=== PATIENT | female | born 1965 | race African-American/Black ===

== ENCOUNTER 2020-01-21 12:22 | Emergency (ER) | payer SELFPAY ==
[~2020-01-21] VITALS: Ht 165.1 cm; Wt 63.5 kg
--- NOTE | 2020-01-21 12:29 | ED Respiratory ---
General Chief Complaint: Respiratory Problems Stated Complaint: SOA Source: patient Exam Limitations: no limitations History of Present Illness Date Seen by Provider: Jan 21, 2020 Time Seen by Provider: 12:27 Initial Comments To ER with reports of shortness of breath worse than usual for the past 2 days, she is moved to [place] 4 days ago from [place], states that she was recently put on disability for "breathing problems" which include but are not limited to asthma, she doesn't know which other lung problems she has.. Also states that she has "a balloon in her lung" following an accident. Timing/Duration: constant Severity: moderate Associated Symptoms: cough; No fever/chills; shortness of breath Allergies and Home Medications Allergies Coded Allergies: No Known Drug Allergies (Unverified , 01/21/20) Patient Home Medication List Home Medication List Reviewed: Yes Review of Systems Review of Systems Constitutional: see HPI; No chills, No fever EENTM: see HPI Respiratory: see HPI, cough, short of breath Genitourinary: no symptoms reported Musculoskeletal: no symptoms reported Skin: no symptoms reported Psychiatric/Neurological: No Symptoms Reported Past [id number]-Rsxduo-Ovcevx Hx Patient Social History Recent Foreign Travel: No Contact w/Someone Who Travel: No Physical Exam Vital Signs - First Documented 01/21/20 12:25 Pulse 85 Resp 21 B/P (MAP) 120/68 (85) Pulse Ox 97 O2 Delivery Room Air Capillary Refill : Height: '" Weight: lbs. oz. kg; BMI Method: General Appearance: WD/WN, no apparent distress Eyes: Bilateral Eye Normal Inspection, Bilateral Eye PERRL, Bilateral Eye Abnormal EOM HEENT: PERRL/EOMI, normal ENT inspection Respiratory: normal breath sounds, no respiratory distress, no accessory muscle use Cardiovascular: regular rate, rhythm, no murmur Gastrointestinal: normal bowel sounds, non tender, soft Neurologic/Psychiatric: alert, normal mood/affect, oriented x 3 Skin: normal color, warm/dry Progress/Results/Core Measures Suspected Sepsis SIRS Temperature: Pulse: Respiratory Rate: Laboratory Tests 01/21/20 12:36: White Blood Count 6.7 Blood Pressure / Mean: Laboratory Tests 01/21/20 12:36: Creatinine 0.73, INR Comment 1.0, Platelet Count 312, Total Bilirubin 0.4 Results/Orders Lab Results Laboratory Tests Test 01/21/20 12:36 01/21/20 12:39 Range/Units White Blood Count 6.7 4.3-11.0 10^3/uL Red Blood Count 4.61 4.35-5.85 10^6/uL Hemoglobin 14.4 11.5-16.0 G/DL Hematocrit 44 35-52 % Mean Corpuscular Volume 95 80-99 FL Mean Corpuscular Hemoglobin 31 25-34 PG Mean Corpuscular Hemoglobin Concent 33 32-36 G/DL Red Cell Distribution Width 14.5 10.0-14.5 % Platelet Count 312 130-400 10^3/uL Mean Platelet Volume 9.1 7.4-10.4 FL Neutrophils (%) (Auto) 35 L 42-75 % Lymphocytes (%) (Auto) 49 H 12-44 % Monocytes (%) (Auto) 9 0-12 % Eosinophils (%) (Auto) 6 0-10 % Basophils (%) (Auto) 1 0-10 % Neutrophils # (Auto) 2.4 1.8-7.8 X 10^3 Lymphocytes # (Auto) 3.3 1.0-4.0 X 10^3 Monocytes # (Auto) 0.6 0.0-1.0 X 10^3 Eosinophils # (Auto) 0.4 H 0.0-0.3 10^3/uL Basophils # (Auto) 0.0 0.0-0.1 10^3/uL Prothrombin Time 13.5 12.2-14.7 SEC INR Comment 1.0 0.8-1.4 Activated Partial Thromboplast Time 34 24-35 SEC D-Dimer 0.44 0.00-0.49 UG/ML Sodium Level 142 135-145 MMOL/L Potassium Level 3.5 L 3.6-5.0 MMOL/L Chloride Level 109 H 98-107 MMOL/L Carbon Dioxide Level 25 21-32 MMOL/L Anion Gap 8 5-14 MMOL/L Blood Urea Nitrogen 13 7-18 MG/DL Creatinine 0.73 0.60-1.30 MG/DL Estimat Glomerular Filtration Rate > 60 BUN/Creatinine Ratio 18 Glucose Level 109 H 70-105 MG/DL Calcium Level 8.9 8.5-10.1 MG/DL Corrected Calcium 9.1 8.5-10.1 MG/DL Magnesium Level 1.9 1.6-2.4 MG/DL Total Bilirubin 0.4 0.1-1.0 MG/DL Aspartate Amino Transf (AST/SGOT) 21 5-34 U/L Alanine Aminotransferase (ALT/SGPT) 15 0-55 U/L Alkaline Phosphatase 90 40-136 U/L Myoglobin 34.2 10.0-92.0 NG/ML Troponin I < 0.028 <0.028 NG/ML B-Type Natriuretic Peptide 11.0 <100.0 PG/ML Total Protein 7.0 6.4-8.2 GM/DL Albumin 3.8 3.2-4.5 GM/DL Urine Color ANA H Urine Clarity SL CLOUDY Urine pH 5.5 5-9 Urine Specific [place] >=1.030 1.016-1.022 Urine Protein NEGATIVE NEGATIVE Urine Glucose (UA) NEGATIVE NEGATIVE Urine Ketones NEGATIVE NEGATIVE Urine Nitrite NEGATIVE NEGATIVE Urine Bilirubin NEGATIVE NEGATIVE Urine Urobilinogen 0.2 < = 1.0 MG/DL Urine Leukocyte Esterase 1+ H NEGATIVE Urine RBC (Auto) NEGATIVE NEGATIVE Urine RBC RARE /HPF Urine WBC 5-10 H /HPF Urine Squamous Epithelial Cells 25-50 H /HPF Urine Crystals NONE /LPF Urine Bacteria TRACE /HPF Urine Casts NONE /LPF Urine Mucus LARGE H /LPF Urine Trichomonas FEW H /HPF Urine Culture Indicated YES Urine Opiates Screen NEGATIVE NEGATIVE Urine Oxycodone Screen NEGATIVE NEGATIVE Urine Methadone Screen NEGATIVE NEGATIVE Urine Propoxyphene Screen NEGATIVE NEGATIVE Urine Barbiturates Screen NEGATIVE NEGATIVE Ur Tricyclic Antidepressants Screen NEGATIVE NEGATIVE Urine Phencyclidine Screen NEGATIVE NEGATIVE Urine Amphetamines Screen POSITIVE H NEGATIVE Urine Methamphetamines Screen POSITIVE H NEGATIVE Urine Benzodiazepines Screen NEGATIVE NEGATIVE Urine Cocaine Screen POSITIVE H NEGATIVE Urine Cannabinoids Screen POSITIVE H NEGATIVE My Orders Orders - MORAIMA AVELAR APRN Cbc With Automated Diff (01/21/20 12:) Magnesium (01/21/20 12:26) Chest 1 View, Ap/Pa Only (01/21/20 12:) Ekg Tracing (01/21/20:) Comprehensive Metabolic Panel (01/21/20:) Myoglobin Serum (01/21/20 12:) Protime With Inr (01/21/20 12:) Partial Thromboplastin Time (01/21/20 12:) O2 (01/21/20 12:) Monitor-Rhythm Ecg Trace Only (01/21/20 12:26) Lipid Panel (01/22/20 06:00) Ed Iv/Invasive Line Start (01/21/20 12:26) BNP (01/21/20 12:26) Troponin I (01/21/20 12:26) Ua Culture If Indicated (01/21/20 12:30) Drug Screen Stat (Urine) (01/21/20 12:30) Fibrin Degradation Products (01/21/20 12:36) Urine Culture (01/21/20 12:39) Vital Signs/I&O 01/21/20 12:25 Pulse 85 Resp 21 B/P (MAP) 120/68 (85) Pulse Ox 97 O2 Delivery Room Air Capillary Refill : Diagnostic Imaging Diagonstic Imaging: Xray Plain Films/CT/US/NM/MRI: chest Comments NAME: BENSON MARROQUIN [facility] REC#: [id number] PT STATUS: REG ER : 1965 PHYSICIAN: MORAIMA AVELAR APRN ADMIT DATE: 01/21/20/ER Draft Date of Exam:01/21/20 CHEST 1 VIEW, AP/PA ONLY INDICATION: Shortness of air. COMPARISON: None. FINDINGS: Single frontal view of the chest demonstrates normal heart size and pulmonary vascularity. The lungs are well aerated and clear. No large pleural effusion or pneumothorax is seen. The visualized osseous structures show no acute abnormalities. IMPRESSION: 1. No acute cardiopulmonary process. Dictated on workstation # [id number] Dict: 01/21/20 1319 Trans: 01/21/20 1320 [id number] Interpreted by: RACHANA COBOS MD Electronically signed by: Departure Impression Primary Impression: Shortness of breath Additional Impressions: Cocaine use Methamphetamine use Disposition: 01 HOME, SELF-CARE Condition: Stable Departure-Patient Inst. Decision time for Depature: 13:14 Referrals: JOSE KERN MD Patient Instructions: Shortness of Breath (Dyspnea), Drug Abuse Treatment Add. Discharge Instructions: 1. Return to ER for any concerns All discharge instructions reviewed with patient and/or family. Voiced understanding. MORAIMA AVELAR APRN Jan 21, 2020 12:29
[2020-01-21 12:42] LABS: BASOPHILS % (AUTO) 1 % (0-10); EOSINOPHILS # (AUTO) 0.4 10^3/uL (0.0-0.3); EOSINOPHILS % (AUTO) 6 % (0-10); HEMATOCRIT 44 % (35-52); HEMOGLOBIN 14.4 G/DL (11.5-16.0); LYMPHOCYTES # (AUTO) 3.3 X 10^3 (1.0-4.0); LYMPHOCYTES % (AUTO) 49 % (12-44); MEAN CORPUSCULAR HEMOGLOBIN 31 PG (25-34); MEAN CORPUSCULAR HGB CONC 33 G/DL (32-36); MEAN CORPUSCULAR VOLUME 95 FL (80-99); MEAN PLATELET VOLUME 9.1 FL (7.4-10.4); MONOCYTES # (AUTO) 0.6 X 10^3 (0.0-1.0); MONOCYTES % (AUTO) 9 % (0-12); NEUTROPHILS # (AUTO) 2.4 X 10^3 (1.8-7.8); NEUTROPHILS % (AUTO) 35 % (42-75); PLATELET COUNT 312 10^3/uL (130-400); RED CELL DISTRIBUTION WIDTH 14.5 % (10.0-14.5); WHITE BLOOD COUNT 6.7 10^3/uL (4.3-11.0)
[2020-01-21 12:46] LABS: BILIRUBIN,URINE NEGATIVE (NEGATIVE); CLARITY,URINE SL CLOUDY; COLOR,URINE AMBER; GLUCOSE, URINE (UA) NEGATIVE (NEGATIVE); KETONES,URINE NEGATIVE (NEGATIVE); LEUKOCYTE ESTERASE ,URINE 1+ (NEGATIVE); NITRITE,URINE NEGATIVE (NEGATIVE); PH,URINE 5.5 (5-9); PROTEIN,URINE NEGATIVE (NEGATIVE)
[2020-01-21 12:56] LABS: FIBRIN DEGRADATION PRODUCTS 0.44 UG/ML (0.00-0.49); PROTHROMBIN TIME PATIENT 13.5 SEC (12.2-14.7)
[2020-01-21 12:58] LABS: AMPHETAMINE SCREEN, URINE POSITIVE (NEGATIVE); BENZODIAZEPINES SCREEN URINE NEGATIVE (NEGATIVE); COCAINE SCREEN URINE POSITIVE (NEGATIVE)
[2020-01-21 12:59] LABS: BARBITURATE SCREEN URINE NEGATIVE (NEGATIVE); CANNABINOID SCREEN, URINE POSITIVE (NEGATIVE); METHADONE STAT NEGATIVE (NEGATIVE); METHAMPHETAMINE SCREEN URINE S POSITIVE (NEGATIVE); OPIATE SCREEN URINE NEGATIVE (NEGATIVE); OXYCODONE STAT NEGATIVE (NEGATIVE); PROPOXYPHENE STAT NEGATIVE (NEGATIVE); TRICYCLIC ANTIDEPRESSANTS SCRE NEGATIVE (NEGATIVE)
[2020-01-21 13:01] LABS: ALANINE AMINOTRANSFERASE 15 U/L (0-55); ALBUMIN 3.8 GM/DL (3.2-4.5); ALKALINE PHOSPHATASE 90 U/L (40-136); BILIRUBIN,TOTAL 0.4 MG/DL (0.1-1.0); BUN/CREATININE RATIO 18; CALCIUM 8.9 MG/DL (8.5-10.1); CARBON DIOXIDE 25 MMOL/L (21-32); CHLORIDE 109 MMOL/L (98-107); CREATININE SERUM 0.73 MG/DL (0.60-1.30); GFR ESTIMATED > 60; GLUCOSE 109 MG/DL (70-105); MAGNESIUM 1.9 MG/DL (1.6-2.4); POTASSIUM 3.5 MMOL/L (3.6-5.0); SODIUM 142 MMOL/L (135-145)
[2020-01-21 13:04] LABS: BACTERIA,URINE TRACE /HPF; RBC,URINE RARE /HPF; SQUAMOUS EPITHELIAL CELL,UR 25-50 /HPF
[2020-01-21 13:05] LABS: TRICHOMONAS,URINE FEW /HPF
--- NOTE | 2020-01-21 13:21 | Diagnostic Imaging Report ---
INDICATION: Shortness of air. COMPARISON: None. FINDINGS: Single frontal view of the chest demonstrates normal heart size and pulmonary vascularity. The lungs are well aerated and clear. No large pleural effusion or pneumothorax is seen. The visualized osseous structures show no acute abnormalities. IMPRESSION: 1. No acute cardiopulmonary process. Dictated by: Dictated on workstation # [id number]
[2020-01-21 13:35] VITALS: BP 101/85
--- OUTSIDE RECORDS SUMMARY | 2020-01-23 15:07 | XMS REPORT ---
Author Author Marzena Larry Organization [facility] Address [address] [place], [place] [id number] Care Team Providers Care Radio Operator Ground Name Role Phone Adin Larry PCP Allergies and Adverse Reactions Name Reaction Notes amoxicillin facial swelling Plan of Treatment Planned Activity Comments Planned Date Planned Time Plan/Goal CYTOPATH C/V MANUAL 12/19/2012 12:00 AM CHEST X-RAY 2VW FRONTAL&LATL 04/11/2014 12:00 AM Urine drug abuse screen with confirmation 01/12/2015 12:00 AM Medications Active Name Start Date Estimated Completion Date SIG Co mments albuterol sulfate 90 mcg/actuation inhalation HFA aerosol inhale r inhale 1 - 2 puffs by inhalation route every 6 hours as needed albuterol sulfate 2.5 mg /3 mL (0.083 %) inhalation so lution for nebulization 05/07/2013 inhale 3 milliliters (2.5 mg ) by nebulization route every 6 hours as needed Cipro 500 mg oral tablet 11/12/2015 11/19/2015 take 1 tablet (500 mg) by oral route every 12 hours for 7 days promethazine-codeine 6.25-10 mg/5 mL oral syrup 11/12/2015 take 5 milliliters by oral route every 4-6 hours as needed, not to exceed 30 mL in 24 hours Name Start Date Expiration Date SIG Comments clindamycin HCl 300 mg oral capsule 10/24/2011 10/31/2011 take 1 capsule (300 mg) by oral route 2 times per day for 7 days Zithromax Z-Shine 250 mg oral tablet 12/09/2011 12/14/2011 take 2 tablets (500 mg) by oral route once daily for 1 day then 1 tablet (250 mg) by oral route once daily for 4 days promethazine-codeine 6.25-10 mg/5 mL oral syrup 01/16/2013 01/16/2013 take 5 milliliters by oral route every 4-6 hours as needed, not to exceed 30 mL in 24 hours hydrocodone-acetaminophen 5-500 mg oral tablet 01/29/2013 TAKE 1 TABLET BY MOUTH EVERY 6 HOURS NEEDED FOR PAIN hydrocodone-acetaminophen 5-500 mg oral tablet 01/29/2013 TAKE 1 TABLET BY MOUTH EVERY 6 HOURS NEEDED FOR PAIN Cipro 500 mg oral tablet 01/30/2014 02/06/2014 take 1 tablet (500 mg) by oral route every 12 hours for 7 days promethazine-codeine 6.25-10 mg/5 mL oral syrup 06/02/2014 take 5 milliliters by oral route every 6 hours as needed, not to exceed 30 mL in 24 hours promethazine-codeine 6.25-10 mg/5 mL oral syrup 08/06/2014 take 5 milliliters by oral route every 6 hours as needed, not to exceed 30 mL in 24 hours guaifenesin 600 mg oral tablet extended release 11/21/2014 12/21/2014 take 1 tablet (600 mg) by oral route every 12 hours as needed for 30 days Keflex 500 mg oral capsule 12/18/2014 12/25/2014 take 1 capsule (500 mg) by oral route every 12 hours for 7 days azithromycin 250 mg oral tablet 04/23/2015 04/28/2015 take 2 tablets (500 mg) by oral route once daily for 1 day then 1 tablet (250 mg) by oral route once daily for 4 days prednisone 20 mg oral tablet 04/23/2015 04/29/2015 Shaq e 3 tabs x 2 days; then Take 2 tabs x 2 days; then Take 1 tab x 2 days. Xanax 0.5 mg oral tablet 07/06/2015 take 1 tablet (0.5 mg) by oral route 3 for 21 days hydrocodone-acetaminophen 10-325 mg oral tablet 07/21/2015 take 1 tablet by oral route every 6 hours as needed for pain Discontinued Name Start Date Discontinued Date SIG Comments promethazine-codeine 6.25-10 mg/5 mL oral syrup 10/24/2011 12/09/2011 take 5 milliliters by oral route every 6 hours as needed, not to exceed 30 mL in 24 hours metronidazole 500 mg oral tablet 10/31/2011 12/09/2011 take 4 tablets (2 gram) by oral route once aluminum chloride 20 % topical solution 12/12/2011 3 apply to affected area by topical route once a day (at bedtime) Lortab 5-500 mg oral tablet 07/31/2012 11/12/2012 1 tab 4-6 epifanio rs prn for pain deleted Claritin 10 mg oral tablet 08/31/2012 05/07/2013 take 1 tablet (10 mg) by oral route once daily promethazine-codeine 6.25-10 mg/5 mL oral syrup 08/31/2012 12/19/2012 take 5 milliliters by oral route every 4-6 hours as needed, not to exceed 30 mL in 24 hours Cipro 500 mg oral tablet 12/19/2012 take 1 tab. bid x 7days Zithromax Z-Shine 250 mg oral tablet 05/07/2013 07/23/2013 Take 2 tablets the first day (500 mg) followed by 1 tablet (250 mg) days 2-5. for 5 days promethazine-codeine 6.25-10 mg/5 mL oral syrup 05/07/2013 07/23/2013 take 5 milliliters by oral route every 4-6 hours as needed, not to exceed 30 mL in 24 hours hydrocodone-acetaminophen 10-325 mg oral tablet 12/19/2014 04/23/2015 take 1 tablet by oral route every 8 hours as needed for pain Didn't do drug screen Problem List Description Status Onset Asthma Active Vital Signs Date Time BP-Sys(mm[Hg] BP-Asuncion(mm[Hg]) HR(bpm) RR(rpm) Temp WT HT HC BMI BSA BMI Percentile O2 Sat(%) 11/12/2015 11:44:00 AM 100 mmHg 70 mmHg 88 bpm 18 rpm 95.4 F 127 lbs 65 in 21.13 kg/m2 1.63 m2 98 % 04/29/2015 2:14:00 PM 110 mmHg 70 mmHg 91 bpm 20 rpm 97.8 F 127 lbs 65 in 21.1337 kg/m 1.6254 m 97 % 04/23/2015 3:10:00 PM 122 mmHg 88 mmHg 78 bpm 20 rpm 97.6 F 99 % 12/18/2014 2:05:00 PM 102 mmHg 61 mmHg 82 bpm 20 rpm 97.9 F 128 lbs 06/12/2014 9:25:00 AM 102 mmHg 80 mmHg 84 bpm 20 rpm 97.1 F 125.125 lbs 65 in 20.82 kg/m2 1.61 m2 98 % 05/06/2014 3:11:00 PM 110 mmHg 70 mmHg 84 bpm 18 rpm 97.2 F 123.125 lbs 65 in 20.4889 kg/m 1.6004 m 98 % 02/25/2014 2:17:00 PM 110 mmHg 70 mmHg 85 bpm 16 rpm 96.5 F 120 lbs 97 % 01/30/2014 10:11:00 AM 100 mmHg 80 mmHg 83 bpm 18 rpm 96.6 F 65 in 97 % 11/05/2013 8:50:00 AM 124 mmHg 74 mmHg 73 bpm 20 rpm 97.5 F 122 lbs 100 % 07/23/2013 1:35:00 PM 130 mmHg 78 mmHg 78 bpm 20 rpm 98.1 F 115 lbs 65 in 19.1368 kg/m 1.5467 m 05/07/2013 3:12:00 PM 134 mmHg 68 mmHg 75 bpm 18 rpm 96.7 F 116.25 lbs 65 i n 19.34 kg/m2 1.56 m2 100 % 12/19/2012 2:00:00 PM 128 mmHg 64 mmHg 64 bpm 18 rpm 97.1 F 119.125 lbs 65 i n 19.8232 kg/m 1.5742 m 08/31/2012 8:53:00 AM 110 mmHg 78 mmHg 72 bpm 18 rpm 96.2 F 129 lbs 65 in 21.47 kg/m2 1.64 m2 07/24/2012 11:10:00 AM 126 mmHg 72 mmHg 72 bpm 18 rpm 97.5 F 65 in 12/09/2011 9:23:00 AM 126 mmHg 68 mmHg 66 bpm 18 rpm 96.6 F 124.5 lbs 65 in 20.72 kg/m2 1.61 m2 10/24/2011 1:55:00 PM 122 mmHg 70 mmHg 72 bpm 18 rpm 98.2 F 119 lbs 65 in 19.8024 kg/m 1.5734 m Social History Name Description Comments Tobacco Current every day smoker History of Procedures Date Ordered Description Order Status 10/29/2011 12:00 AM URINALYSIS AUTO W/O SCOPE Reviewed 10/24/2011 12:00 AM CYTOPATH C/V THIN LAYER Reviewed 10/24/2011 12:00 AM MAMMOGRAM SCREENING Reviewed 07/30/2012 12:00 AM X-RAY EXAM OF ANKLE Returned 12/19/2012 12:00 AM MAMMOGRAM BOTH BREASTS Returned 12/24/2012 12:00 AM MAMMOGRAM SCREENING Returned 05/07/2013 12:00 AM THER/PROPH/DIAG INJ SC/IM Reviewed 05/07/2013 12:00 AM Decadron, Per 1 Mg [facility]# [address]-45 Re viewed 05/07/2013 12:00 AM Depo-Medrol, Per 80 Mg [facility]#2629-4376-08 Reviewed 05/07/2013 12:00 AM Rocephin 1 gram [facility]#7007-2403-39 Reviewe d 05/07/2013 12:00 AM URINALYSIS NONAUTO W/O SCOPE Reviewed 07/23/2013 12:00 AM X-RAY EXAM OF HIP Reviewed 07/23/2013 12:00 AM X-RAY EXAM L-S SPINE 2/3 VWS Reviewed 06/12/2014 12:00 AM Mental Health Consult Reviewed 07/24/2014 12:00 AM COMPLETE CBC W/AUTO DIFF WBC Returned 07/24/2014 12:00 AM COMPREHEN METABOLIC PANEL Returned 07/24/2014 12:00 AM ASSAY OF NATRIURETIC PEPTIDE Returned 07/24/2014 12:00 AM CHEST X-RAY 2VW FRONTAL&LATL Returned 06/22/2015 12:00 AM DRUG SCREEN NON TLC DEVICES Returned Results Summary Data and Description Results 07/30/2014 9:24 PM WBC 8.5 RBC 4.01 HGB 13.50 g /dLHCT 39.30 %MCV 98.0 fLMCH 33.70 pgMCHC 34.40 g/dLRDW CV 13.50 %MPV 9.10 fLPLT 254 %NEUT 34.80 %%LYMP 48.70 %%MONO 6.80 %%EOS 8.90 %%BASO 0.80 %#NEUT 2.95 #LYMP 4.14 #MONO 0.58 #EOS 0.76 #BASO 0.07 GLUCOSE 60.0 mg/dLSODIUM 137.0 mmol/LPOTASSIUM 3.90 mmol/LCHLORIDE 104.0 mmol/LCO2 26.0 mmol/LBUN 16.0 mg/dLCREATININE 0.80 mg/dLSGOT/AST 17.0 IU/LSGPT/ALT 11.0 IU/LALK PHOS 72.0 IU/LTOTAL PROTEIN 7.60 g/dLALBUMIN 3.90 g/dLTOTAL BILI 0.40 mg/dLCALCIUM 8.90 mg/dLeGFR 60 BNP <10 PG/ML 06/22/2015 1:18 PM Cannabinoids (THC) NON-NEGAT LEEROY Phencyclidine (PCP) NEGATIVE Cocaine NON-NEGATIVE Methamphetamine NEGATIVE Opiates NON-NEGATIVE Amphetamine NEGATIVE Benzodiazepines NEGATIVE Methadone NEGATIVE Barbiturates NEGATIVE Oxycodone NEGATIVE Propoxyphene (PPX) NEGATIVE History Of Immunizations Not available. History of Past Illness Name Date of Onset Comments Asthma Routine gynecological examination Oct 24 2011 1:57PM Screening Examination for Breast Cancer Oct 24 2011 1:57PM Bronchitis, Acute Oct 24 2011 1:57PM Upper Respiratory Infections Dec 09 2011 9:25AM Fracture Of Medial Malleolus, Hairline Fracture Jul 24 2012 11:11AM Cough Jul 24 2012 11:11AM Fracture Of Medial Malleolus, Hairline Fracture Jul 30 2012 11:55AM General Medical Exam, Adult Aug 31 2012 8:56AM Seasonal Allergies Aug 31 2012 8:56AM Routine gynecological examination Dec 19 2012 2:01PM Fibrocystic Changes Of The Breast Dec 19 2012 2:01PM Screening Mammogram Dec 24 2012 1:46PM Pneumonia May 07 2013 3:14PM Upper Respiratory Infections May 07 2013 3:14PM Dysuria May 07 2013 3:14PM Pain in joint; Right Hip Jul 23 2013 1:37PM Low Back Pain Jul 23 2013 1:37PM Pain in joint; Right Hip Nov 05 2013 9:28AM Low Back Pain Nov 05 2013 9:28AM Hip pain Jan 30 2014 10:13AM Dental caries Jan 30 2014 10:13AM Cough Feb 25 2014 2:19PM Dental caries Feb 25 2014 2:19PM Cough Apr 11 2014 8:06AM Depression May 06 2014 3:14PM Chronic hip pain May 06 2014 3:14PM Cough May 06 2014 3:14PM Hip pain Jun 12 2014 9:29AM Grief reaction Jun 12 2014 9:29AM Chronic cough Jul 24 2014 3:32PM URI (upper respiratory infection) Dec 18 2014 2:19PM Dental caries Dec 18 2014 2:19PM 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 Jan 12 2015 3:03P M Sinusitis Apr 23 2015 3:11PM Chronic hip pain, right Apr 29 2015 2:15PM Chronic use of opiate for therapeutic purpose Jun 22 2015 10 :11AM Acute maxillary sinusitis, recurrence not specified Nov 12 11:46AM Payers Insurance Name Company Name Plan Name Plan Number Policy Number Matt cy Group Number Start Date [place] [facility] [place] [facility] Marybeth oscar Bernal [id number] Friday, 2014 [facility] [id number] Friday, August 31, 2012 [employer] [id number] N/A [facility] [id number] May [employer] Financial Assistance [employer]ial Marybeth 50 Percent Wednesday, November 13, 2013 [facility] [place] [facility] ONLY [facility] [id number] N/A History of Encounters Visit Date Visit Type Provider 11/12/2015 Office visit Adin Larry APR N 04/29/2015 Office visit Adin Larry APR N 04/23/2015 Office visit Adin Larry APR N 12/18/2014 Office visit Adin Larry APR N 06/12/2014 Office visit Adin Larry APR N 05/06/2014 Office visit Adin Larry APR N 02/25/2014 Office visit Adin Larry APR N 01/30/2014 Office visit Adin Larry APR N 11/05/2013 Office visit Adin Larry APR N 07/23/2013 Office visit Franklin Fernández DO 05/07/2013 Office visit Joselin Dobbs ART SALES CONSULTANT 12/19/2012 Office visit Joselin Dobbs ART SALES CONSULTANT 08/31/2012 Office visit Joselin Dobbs ART SALES CONSULTANT 07/24/2012 Office visit Joselin Dobbs ART SALES CONSULTANT 12/09/2011 Office visit Joselin Dobbs ART SALES CONSULTANT 10/24/2011 Office visit Franklin Fernández DO
--- OUTSIDE RECORDS SUMMARY | 2020-01-23 15:07 | XMS REPORT ---
Author Author [facility] Organization [facility] Address [address] [place], [place] [id number] Care Team Providers Care Pl Sql Developer Name Role Phone PCP Unavailable Allergies and Adverse Reactions Name Reaction Notes amoxicillin facial swelling Plan of Treatment Planned Activity Comments Planned Date Planned Time Plan/Goal CYTOPATH C/V MANUAL 12/19/2012 12:00 AM CHEST X-RAY 2VW FRONTAL&LATL 04/11/2014 12:00 AM Urine drug abuse screen with confirmation 01/12/2015 12:00 AM Medications Active Name Start Date Estimated Completion Date SIG Co mments albuterol sulfate Inhalation HFA Aerosol Inhaler 90 mcg/actuatio n inhale 1 - 2 puffs by inhalation route every 6 hours as needed albuterol sulfate Inhalation Solution for Nebulization 2.5 mg /3 mL (0.083 %) 05/07/2013 inhale 3 milliliters (2.5 mg ) by nebulization route every 6 hours as needed prednisone oral tablet 20 mg 04/23/2015 04/29/2015 Shaq e 3 tabs x 2 days; then Take 2 tabs x 2 days; then Take 1 tab x 2 days. Xanax oral tablet 0.5 mg 04/27/2015 take 1 tablet (0.5 mg) by oral route 3 for 21 days hydrocodone-acetaminophen oral tablet 10-325 mg 04/29/2015 take 1 tablet by oral route every 6 hours as needed for pain Name Start Date Expiration Date SIG Comments clindamycin HCl Oral Capsule 300 mg 10/24/2011 10/31/2011 take 1 capsule (300 mg) by oral route 2 times per day for 7 days Zithromax Z-Shine Oral Tablet 250 mg 12/09/2011 12/14/2011 take 2 tablets (500 mg) by oral route once daily for 1 day then 1 tablet (250 mg) by oral route once daily for 4 days promethazine-codeine Oral Syrup 6.25-10 mg/5 mL 01/16/2013 01/16/2013 take 5 milliliters by oral route every 4-6 hours as needed, not to exceed 30 mL in 24 hours hydrocodone-acetaminophen Oral tablet 5-500 mg 01/29/2013 TAKE 1 TABLET BY MOUTH EVERY 6 HOURS NEEDED FOR PAIN hydrocodone-acetaminophen Oral tablet 5-500 mg 01/29/2013 TAKE 1 TABLET BY MOUTH EVERY 6 HOURS NEEDED FOR PAIN Cipro oral tablet 500 mg 01/30/2014 02/06/2014 take 1 tablet (500 mg) by oral route every 12 hours for 7 days promethazine-codeine oral syrup 6.25-10 mg/5 mL 06/02/2014 take 5 milliliters by oral route every 6 hours as needed, not to exceed 30 mL in 24 hours promethazine-codeine oral syrup 6.25-10 mg/5 mL 08/06/2014 take 5 milliliters by oral route every 6 hours as needed, not to exceed 30 mL in 24 hours guaifenesin oral tablet extended release 600 mg 11/21/2014 12/21/2014 take 1 tablet (600 mg) by oral route every 12 hours as needed for 30 days Keflex oral capsule 500 mg 12/18/2014 12/25/2014 take 1 capsule (500 mg) by oral route every 12 hours for 7 days azithromycin oral tablet 250 mg 04/23/2015 04/28/2015 take 2 tablets (500 mg) by oral route once daily for 1 day then 1 tablet (250 mg) by oral route once daily for 4 days Discontinued Name Start Date Discontinued Date SIG Comments promethazine-codeine Oral Syrup 6.25-10 mg/5 mL 10/24/2011 12/09/2011 take 5 milliliters by oral route every 6 hours as needed, not to exceed 30 mL in 24 hours metronidazole Oral Tablet 500 mg 10/31/2011 12/09/2011 take 4 tablets (2 gram) by oral route once aluminum chloride Topical Solution 20 % 12/12/2011 3 apply to affected area by topical route once a day (at bedtime) Lortab Oral tablet 5-500 mg 07/31/2012 11/12/2012 1 tab 4-6 epifanio rs prn for pain deleted Claritin Oral tablet 10 mg 08/31/2012 05/07/2013 take 1 tablet (10 mg) by oral route once daily promethazine-codeine Oral Syrup 6.25-10 mg/5 mL 08/31/2012 12/19/2012 take 5 milliliters by oral route every 4-6 hours as needed, not to exceed 30 mL in 24 hours Cipro Oral tablet 500 mg 12/19/2012 take 1 tab. bid x 7days Zithromax Z-Shine Oral Tab 250 MG 05/07/2013 07/23/2013 Take 2 tablets the first day (500 mg) followed by 1 tablet (250 mg) days 2-5. for 5 days promethazine-codeine Oral Syrup 6.25-10 mg/5 mL 05/07/2013 07/23/2013 take 5 milliliters by oral route every 4-6 hours as needed, not to exceed 30 mL in 24 hours hydrocodone-acetaminophen oral tablet 10-325 mg 12/19/2014 04/23/2015 take 1 tablet by oral route every 8 hours as needed for pain Didn't do drug screen Problem List Description Status Onset Asthma Active Vital Signs Date Time BP-Sys(mm[Hg] BP-Asuncion(mm[Hg]) HR(bpm) RR(rpm) Temp WT HT HC BMI BSA BMI Percentile O2 Sat(%) 04/29/2015 2:14:00 PM 110 mmHg 70 mmHg 91 bpm 20 rpm 97.8 F 127 lbs 65 in 21.13 kg/m2 1.63 m2 97 % 04/23/2015 3:10:00 PM 122 mmHg [...] THER/PROPH/DIAG INJ SC/IM Reviewed 05/07/2013 12:00 AM URINALYSIS NONAUTO W/O SCOPE Reviewed 07/23/2013 12:00 AM X-RAY EXAM OF HIP Reviewed 07/23/2013 12:00 AM X-RAY EXAM L-S SPINE 2/3 VWS Reviewed 07/24/2014 12:00 AM COMPLETE CBC W/AUTO DIFF WBC Returned 07/24/2014 12:00 AM COMPREHEN METABOLIC PANEL Returned 07/24/2014 12:00 AM ASSAY OF NATRIURETIC PEPTIDE Returned 07/24/2014 12:00 AM CHEST X-RAY 2VW FRONTAL&LATL Returned Results Summary Data and Description Results [...] mg/dLCALCIUM 8.90 mg/dLeGFR 60 BNP <10 PG/ML History Of Immunizations Not available. History of [...] 2:19PM Dental caries Dec 18 2014 2:19PM snf current use of opiate analgesic Jan 12 2015 3:03P M Sinusitis Apr 23 2015 3:11PM Chronic hip pain, right Apr 29 2015 2:15PM Payers Insurance Name Company Name Plan Name Plan Number Policy Number Matt cy Group Number Start Date [facility] [id number] [place] [facility] Financial Assistance [facility] Fin ancial Marybeth 50 Percent Wednesday, November 13, 2013 Free Clinic - [place] [facility] ONLY Free Clinic [id number] N/A [place] [facility] Marybeth oscar Galaviz [id number] Friday, February 14, 2014 [facility] Occupational Medicine [id number] Friday, August 31, 2012 [employer] [id number] N/A History of Encounters Visit Date Visit Type Provider 04/29/2015 Office visit Adin Larry APR N [...] Fernández DO 05/07/2013 Office visit Joselin Dobbs COPER HAND 12/19/2012 Office visit Joselin Dobbs COPER HAND 08/31/2012 Office visit Joselin Dobbs COPER HAND 07/24/2012 Office visit Joselin Dobbs COPER HAND 12/09/2011 Office visit Joselin Dobbs APRN 10/24/2011 Office visit Franklin Fernández DO
--- OUTSIDE RECORDS SUMMARY | 2020-01-23 15:07 | XMS REPORT ---
Author Author Marzena Larry Organization [facility] Address [address] [place] [phone] Care Team Providers Care Learning Facilitator Name Role Phone Adin Larry PCP Allergies and Adverse Reactions Name Reaction Notes amoxicillin facial swelling Plan of Treatment Planned Activity Comments Planned Date Planned Time Plan/Goal Pap smear 03/23/2018 12:00 AM Chlamydia 03/23/2018 12:00 AM Gonorrhea 03/23/2018 12:00 AM Medications Active Name Start Date Estimated Completion Date SIG Co mments albuterol sulfate 90 mcg/actuation inhalation HFA aerosol inhale r inhale 1 - 2 puffs by inhalation route every 6 hours as needed albuterol sulfate 2.5 mg /3 mL (0.083 %) inhalation so lution for nebulization 05/07/2013 inhale 3 milliliters (2.5 mg ) by nebulization route every 6 hours as needed Flagyl 500 mg oral tablet 03/23/2018 03/30/2018 take 1 tablet (500 mg) by oral route every 12 hours for 7 days Name Start Date Expiration Date SIG Comments [...] every 6 hours as needed for pain promethazine-codeine 6.25-10 mg/5 mL oral syrup 11/12/2015 take 5 milliliters by oral route every 4-6 hours as needed, not to exceed 30 mL in 24 hours Tessalon Perles 100 mg oral capsule 01/18/2018 take 1 capsule (100 mg) by oral route 3 times per day as needed for cough Cipro 500 mg oral tablet 01/18/2018 take 1 tablet (500 mg) by oral route every 12 hours for 7 days Discontinued Name Start Date Discontinued Date [...] HC BMI BSA BMI Percentile O2 Sat(%) 03/20/2018 3:01:00 PM 120 mmHg 70 mmHg 82 bpm 18 rpm 98.1 F 137 lbs 65 in 22.7978 kg/m 1.6882 m 99 % 01/18/2018 1:24:00 PM 128 mmHg 78 mmHg 86 bpm 18 rpm 98.5 F 138.5 lbs 65 in 23.05 kg/m2 1.70 m2 98 % 11/12/2015 11:44:00 AM 100 mmHg 70 mmHg 88 bpm 18 rpm 95.4 F 127 lbs 65 in 21.1337 kg/m 1.6254 m 98 % 04/29/2015 2:14:00 PM 110 mmHg [...] rpm 97.1 F 125.125 lbs 65 in 20.8217 kg/m 1.6133 m 98 % 05/06/2014 3:11:00 PM 110 mmHg 70 mmHg 84 bpm 18 rpm 97.2 F 123.125 lbs 65 in 20.49 kg/m2 1.60 m2 98 % 02/25/2014 2:17:00 PM 110 mmHg [...] rpm 96.6 F 124.5 lbs 65 in 20.7177 kg/m 1.6093 m 10/24/2011 1:55:00 PM 122 mmHg 70 mmHg 72 bpm 18 rpm 98.2 F 119 lbs 65 in 19.80 kg/m2 1.57 m2 Social History Name Description Comments Tobacco Current every day smoker History of Procedures Date Ordered Description Order Status 10/29/2011 12:00 AM URINALYSIS AUTO W/O SCOPE Reviewed 10/24/2011 12:00 AM CYTOPATH C/V THIN LAYER Reviewed 10/24/2011 12:00 AM MAMMOGRAM SCREENING Reviewed 07/30/2012 12:00 AM X-RAY EXAM OF ANKLE Reviewed 12/19/2012 12:00 AM CYTOPATH C/V MANUAL Reviewed 12/19/2012 12:00 AM MAMMOGRAM BOTH BREASTS Reviewed 12/24/2012 12:00 AM MAMMOGRAM SCREENING Reviewed 03/23/2018 12:00 AM SPECIMEN HANDLING OFFICE-LAB Reviewed 03/23/2018 12:00 AM Pap Specimen Handling - Medicare Reviewe d 05/07/2013 12:00 AM THER/PROPH/DIAG INJ SC/IM Reviewed 05/07/2013 12:00 AM Decadron, Per 1 Mg [facility]# [address]-23 Re viewed 05/07/2013 12:00 AM Depo-Medrol, Per 80 Mg [facility]#8187-6871-88 Reviewed 05/07/2013 12:00 AM Rocephin 1 gram [facility]#[id number] Reviewe d 05/07/2013 12:00 AM URINALYSIS NONAUTO W/O SCOPE Reviewed 07/23/2013 12:00 AM X-RAY EXAM OF HIP Reviewed 07/23/2013 12:00 AM X-RAY EXAM L-S SPINE 2/3 VWS Reviewed 07/23/2013 12:00 AM Orthopedic Consult - Dr Aragon Reviewed 06/12/2014 12:00 AM Mental Health Consult Reviewed 07/24/2014 12:00 AM COMPLETE CBC W/AUTO DIFF WBC Reviewed 07/24/2014 12:00 AM COMPREHEN METABOLIC PANEL Reviewed 07/24/2014 12:00 AM ASSAY OF NATRIURETIC PEPTIDE Reviewed 07/24/2014 12:00 AM CHEST X-RAY 2VW FRONTAL&LATL Reviewed 12/18/2014 12:00 AM Dental Consult Reviewed 06/22/2015 12:00 AM DRUG SCREEN NON TLC DEVICES Reviewed Results Summary Date and Description Results 07/30/2014 9:24 PM WBC 8.5 RBC 4.01 HGB 13.50 g /dLHCT 39.30 %MCV 98.0 fLMCH 33.70 pgMCHC 34.40 g/dLRDW SD 49 RDW CV 13.50 %MPV 9.10 fLPLT 254 NRBC# 0.00 NRBC% 0.0 %NEUT 34.80 %%LYMP 48.70 %%MONO 6.80 %%EOS 8.90 %%BASO 0.80 %#NEUT 2.95 #LYMP 4.14 #MONO 0.58 #EOS 0.76 #BASO 0.07 MANUAL DIFF NOT IND GLUCOSE 60.0 mg/dLSODIUM 137.0 mmol/LPOTASSIUM 3.90 mmol/LCHLORIDE 104.0 mmol/LCO2 26.0 mmol/LBUN 16.0 mg/dLCREATININE 0.80 mg/dLSGOT/AST 17.0 IU/LSGPT/ALT 11.0 IU/LALK PHOS 72.0 IU/LTOTAL PROTEIN 7.60 g/dLALBUMIN 3.90 g/dLTOTAL BILI 0.40 mg/dLCALCIUM 8.90 mg/dLAGE 48 GFR NonAA 77 GFR AA 93 eGFR 60 eGFR AA* 60 BNP <10 PG/ML 06/22/2015 1:18 PM Cannabinoids (THC) NON-NEGAT LEEROY Phencyclidine (PCP) NEGATIVE Cocaine NON-NEGATIVE Methamphetamine NEGATIVE Opiates NON-NEGATIVE Amphetamine NEGATIVE Benzodiazepines NEGATIVE Tricyclic Antidepres NEGATIVE Methadone NEGATIVE Barbiturates NEGATIVE Oxycodone NEGATIVE [...] 2:19PM Dental caries Dec 18 2014 2:19PM correction current use of opiate analgesic Jan 12 2015 3:03P M Sinusitis Apr 23 2015 3:11PM Chronic hip pain, right Apr 29 2015 2:15PM Chronic use of opiate for therapeutic purpose Jun 22 2015 10 :11AM Acute maxillary sinusitis, recurrence not specified Nov 12 2 015 11:46AM Upper respiratory tract infection, unspecified type Jan 18 2 018 1:26PM Routine gynecological examination Mar 20 2018 3:02PM Payers Insurance Name Company Name Plan Name Plan Number Policy Number Matt cy Group Number Start Date [employer] [id number] N/A [place] Medical Assistance Program [facility] Marybeth radha [id number] Friday, 2014 [facility] Med Occupational Medicine [id number] Friday, August 31, 2012 [employer] [id number] N/A [facility] [id number] [facility] Financial Assistance [facility] Hao rosaial Marybeth 50 Percent Wednesday, November 13, 2013 [facility] [place] [facility] [id number] N/A History of Encounters Visit Date Visit Type Provider 03/20/2018 Office visit Adin Larry APR N 01/18/2018 Office visit Adin Larry APR N 05/24/2016 [facility] Jean Heaton MD 11/12/2015 Office visit Adin Mccormickran APR N 04/29/2015 Office visit Adin Mccormickran APR N 04/23/2015 Office visit Adin Mccormickran APR N 12/18/2014 Office visit Adin Mccormickran APR N 06/12/2014 Office visit Adin Mccormickran APR N 05/06/2014 Office visit Adin Mccormickran APR N 02/25/2014 Office visit Adin Mccormickran APR N 01/30/2014 Office visit Adin Larry APR N 11/05/2013 Office visit Adin Larry APR N 07/23/2013 Office visit Franklin Fernández DO 05/07/2013 Office visit Joselin Dobbs CHILD CARE SITTER 12/19/2012 Office visit Joselin Dobbs CHILD CARE SITTER 08/31/2012 Office visit Joselin Dobbs CHILD CARE SITTER 07/24/2012 Office visit Joselin Dobbs CHILD CARE SITTER 12/09/2011 Office visit Joselin Dobbs CHILD CARE SITTER 10/24/2011 Office visit Franklin Fernández DO
--- OUTSIDE RECORDS SUMMARY | 2020-01-23 15:07 | XMS REPORT ---
Author Author Marzena Larry Organization [facility] Address [address] [place], [place] [id number] Care Team Providers Care Utility Systems Repairer Operator Name Role Phone Adin Larry PCP Adin Larry PreferredProvider Allergies and Adverse Reactions Name Reaction Notes amoxicillin facial swelling Plan of Treatment Not available. Medications Active Name Start Date Estimated Completion Date SIG Co mments albuterol sulfate 90 mcg/actuation inhalation HFA aerosol inhale r inhale 1 - 2 puffs by inhalation route every 6 hours as needed albuterol sulfate 2.5 mg /3 mL (0.083 %) Inhalation So lution for Nebulization 06/07/2018 inhale 3 milliliters (2.5 mg ) by nebulization route every 6 hours as needed Name Start Date Expiration Date SIG Comments [...] route every 12 hours for 7 days Flagyl 500 mg oral tablet 03/23/2018 03/30/2018 take 1 tablet (500 mg) by oral route every 12 hours for 7 days promethazine 25 mg oral tablet 10/23/2018 t [place] 1 tablet (25 mg) by oral route every 6 hours as needed clindamycin HCl 300 mg oral capsule 01/18/2019 01/25/2019 take 1 capsule (300 mg) by oral route 2 times per day for 7 days Discontinued Name Start Date [...] HC BMI BSA BMI Percentile O2 Sat(%) 01/18/2019 9:29:00 AM 140 mmHg 80 mmHg 94 bpm 16 rpm 97.9 F 147 lbs 65 in 24.4618 kg/m 1.7487 m 98 % 03/20/2018 3:01:00 PM 120 mmHg 70 mmHg 82 bpm 18 rpm 98.1 F 137 lbs 65 in 22.80 kg/m2 1.69 m2 99 % 01/18/2018 1:24:00 PM 128 mmHg 78 mmHg 86 bpm 18 rpm 98.5 F 138.5 lbs 65 in 23.0474 kg/m 1.6974 m 98 % 11/12/2015 11:44:00 AM 100 mmHg [...] F 119 lbs 65 in 19.8024 kg/m 1.57 m2 Social History Name Description Comments [...] Pap Specimen Handling - Medicare Reviewe d 03/23/2018 12:00 AM CYTOPATH C/V THIN LAYER Reviewed 03/23/2018 12:00 AM CHLAMYDIA CULTURE Reviewed 03/23/2018 12:00 AM N.GONORRHOEAE DNA AMP PROB Reviewed 05/07/2013 12:00 AM THER/PROPH/DIAG INJ SC/IM Reviewed 05/07/2013 12:00 AM Decadron, Per 1 Mg [facility]# [id number] Re viewed 05/07/2013 12:00 AM Depo-Medrol, Per 80 Mg [facility]#8644-4689-60 Reviewed 05/07/2013 12:00 AM Rocephin 1 gram [facility]#1482-9025-34 Reviewe d 05/07/2013 12:00 AM URINALYSIS NONAUTO [...] 2:19PM Dental caries Dec 18 2014 2:19PM 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 Jan 12 2015 3:03P M Sinusitis Apr 23 2015 3:11PM Chronic hip pain, right Apr 29 2015 2:15PM Chronic use of opiate for therapeutic purpose Jun 22 2015 10 :11AM Acute maxillary sinusitis, recurrence not specified Nov 12 11:46AM Upper respiratory tract infection, unspecified type Jan 18 2 018 1:26PM Routine gynecological examination Mar 20 2018 3:02PM Acute bronchitis, unspecified organism Jan 18 2019 9:31AM Payers Insurance Name Company Name Plan Name Plan Number Policy Number Matt cy Group Number Start Date [id number] N/ A [facility] Assistance [facility] Marybeth Bernal [id number] Friday, 2014 [facility] Occupational Medicine [id number] Friday, August 31, 2012 [employer] [id number] N/A [facility] [id number] May [facility] Financial Assistance [place] [employer] Fin ancial Marybeth 50 Percent Wednesday, November 13, 2013 [place] - [place] [facility] ONLY Free Clinic [id number] N/A [employer] [id number] N/A History of Encounters Visit Date Visit Type Provider 01/18/2019 Office visit Adin Larry APR N 03/20/2018 Office visit Adin Larry APR N 01/18/2018 Office visit Adin Larry APR N 05/24/2016 [facility] Jean Heaton MD 11/12/2015 Office visit Adin Larry APR N [...] Fernández DO 05/07/2013 Office visit Joselin Dobbs CATEGORY MANAGER 12/19/2012 Office visit Joselin Dobbs CATEGORY MANAGER 08/31/2012 Office visit Joselin Dobbs CATEGORY MANAGER 07/24/2012 Office visit Joselin Dobbs CATEGORY MANAGER 12/09/2011 Office visit Joselin Dobbs CATEGORY MANAGER 10/24/2011 Office visit Franklin Fernández DO
--- OUTSIDE RECORDS SUMMARY | 2020-01-23 15:08 | XMS REPORT ---
Author Author Marzena Larry [facility] Address [address] [place] [id number] Care Team Providers Care Clinical Services Consultant Name Role Phone Adin Larry PCP Allergies [...] nebulization route every 6 hours as needed promethazine-codeine 6.25-10 mg/5 mL oral syrup 11/12/2015 [...] HC BMI BSA BMI Percentile O2 Sat(%) 01/18/2018 1:24:00 PM 128 mmHg 78 mmHg [...] rpm 98.1 F 115 lbs 65 in 19.14 kg/m2 1.55 m2 05/07/2013 3:12:00 PM 134 mmHg 68 mmHg 75 bpm 18 rpm 96.7 F 116.25 lbs 65 i n 19.3448 kg/m 1.5551 m 100 % 12/19/2012 2:00:00 PM 128 mmHg 64 mmHg 64 bpm 18 rpm 97.1 F 119.125 lbs 65 i n 19.82 kg/m2 1.57 m2 08/31/2012 8:53:00 AM 110 mmHg 78 mmHg 72 bpm 18 rpm 96.2 F 129 lbs 65 in 21.4665 kg/m 1.6381 m 07/24/2012 11:10:00 AM 126 mmHg 72 mmHg [...] Reviewed 12/24/2012 12:00 AM MAMMOGRAM SCREENING Reviewed 05/07/2013 12:00 AM THER/PROPH/DIAG INJ SC/IM Reviewed 05/07/2013 12:00 AM Decadron, Per 1 Mg [facility]# [address]-19 Re viewed 05/07/2013 12:00 AM Depo-Medrol, Per 80 Mg [facility]#2023-1945-87 Reviewed 05/07/2013 12:00 AM Rocephin 1 gram [facility]#[id number] Reviewe d 05/07/2013 12:00 AM URINALYSIS NONAUTO [...] 2:19PM Dental caries Dec 18 2014 2:19PM retirement current use of opiate analgesic Jan 12 2015 3:03P M Sinusitis Apr 23 2015 3:11PM Chronic hip pain, right Apr 29 2015 2:15PM Chronic use of opiate for therapeutic purpose Jun 22 2015 10 :11AM Acute maxillary sinusitis, recurrence not specified Nov 12 11:46AM Upper respiratory tract infection, unspecified type Jan 18 1:26PM Payers Insurance Name Company Name Plan Name Plan Number Policy Number Amtt cy Group Number Start Date [place] [facility] Marybeth oscar Pro [id number] Friday, 2014 [facility] Med Occupational Medicine [id number] Friday, August 31, 2012 [employer] [id number] N/A [facility] [id number] May [facility] Financial Assistance [facility] Fin ancial Marybeth 50 Percent Wednesday, November 13, 2013 [facility] [place] [facility] [id number] N/A History of Encounters Visit Date Visit Type Provider 01/18/2018 Office visit Adin Larry APR N 05/24/2016 [facility] Jean Heaton MD 11/12/2015 Office visit [...] Fernández DO 05/07/2013 Office visit Joselin Dobbs BABBITT SPINNER 12/19/2012 Office visit Joselin Dobbs BABBITT SPINNER 08/31/2012 Office visit Joselin Dobbs BABBITT SPINNER 07/24/2012 Office visit Joselin Dobbs BABBITT SPINNER 12/09/2011 Office visit Joselin Dobbs APRN 10/24/2011 Office visit Franklin Fernández DO
== END 2020-01-21 13:35 | disposition home or self-care (01) ==
LOC: ER 12:24
DX: R06.02 Shortness of breath (principal); F14.90 Cocaine use, unspecified, uncomplicated; F15.90 Other stimulant use, unspecified, uncomplicated
CPT/HCPCS: 36415; 71045; 80053; 80306; 81000; 83735; 83874; 83880; 84484; 85025; 85379; 85610; 85730; 87088; 93005; 93041

== ENCOUNTER 2021-06-26 17:26 | Inpatient (IN) | payer MEDICARE ==
[~2021-06-26] VITALS: Ht 165 cm; Wt 50.0 kg
--- NOTE | 2021-06-26 17:55 | ED Abdominal Pain ---
General Chief Complaint: Abdominal/GI Problems Stated Complaint: ABD PAIN Nursing Triage Note: PT ARRIVES TO ER WITH C/O ABD PAIN FOR THE LAST THREE DAYS. PT STATES PAIN IS 10/10 Source of Information: Patient Exam Limitations: No Limitations History of Present Illness Date Seen by Provider: Jun 26, 2021 Time Seen by Provider: 17:53 Initial Comments To ER by private vehicle from home with a 3-day history of upper midline abdominal pain. She rates this a 10 out of 10 waxes and wanes in intensity. She cannot identify any modifying factors. She does have nausea without vomiting. No diarrhea no urinary symptoms. She does smoke cigarettes and use methamphetamine. Timing/Duration: 2-3 Days Severity/Quality: Severe Location: Epigastric Radiation: No Radiation Activities at Onset: None Allergies and Home Medications Allergies Coded Allergies: No Known Drug Allergies (Unverified , 01/21/20) Patient Home Medication List Home Medication List Reviewed: Yes Review of Systems Review of Systems Constitutional: see HPI EENTM: No Symptoms Reported Respiratory: No Symptoms Reported Cardiovascular: No Symptoms Reported Gastrointestinal: See HPI, Abdominal Pain, Nausea Genitourinary: No Symptoms Reported Musculoskeletal: no symptoms reported Psychiatric/Neurological: No Symptoms Reported Endocrine: No Symptoms Reported Hematologic/Lymphatic: No Symptoms Reported Past Nkgtnyn-Buiolj-Cxdbgo Hx Immunizations Up To Date Tetanus Booster (TDap): Unknown PED Vaccines UTD: Yes Seasonal Allergies Seasonal Allergies: No Past Medical History Surgeries: Yes (LUNG, RIGHT PELVIS & FEMUR, BULLET REMOVED FROM HEAD) Orthopedic Respiratory: Yes Asthma Cardiac: No Neurological: No Genitourinary: No Gastrointestinal: No Musculoskeletal: No Endocrine: No HEENT: No Cancer: No Psychosocial: No Physical Exam Vital Signs Vital Signs - First Documented 06/26/21 17:38 Temp 35.3 Pulse 110 Resp 20 B/P (MAP) 125/82 (96) Pulse Ox 100 O2 Delivery Room Air Capillary Refill : Less Than 3 Seconds Height/Weight/BMI Height: '" Weight: lbs. oz. kg; 18.00 BMI Method: General Appearance: WD/WN, thin, other (Writhing, moaning) HEENT: PERRL/EOMI, normal ENT inspection Neck: non-tender, full range of motion, supple Respiratory: no respiratory distress, no accessory muscle use Gastrointestinal: normal bowel sounds, non tender, soft Extremities: normal range of motion, non-tender Neurologic/Psychiatric: alert, normal mood/affect, oriented x 3 Skin: normal color, warm/dry Progress/Results/Core Measures Results/Orders Lab Results Laboratory Tests Test 06/26/21 17:53 Range/Units White Blood Count 10.8 4.3-11.0 10^3/uL Red Blood Count 5.66 H 3.80-5.11 10^6/uL Hemoglobin 17.9 H 11.5-16.0 g/dL Hematocrit 55 H 35-52 % Mean Corpuscular Volume 97 80-99 fL Mean Corpuscular Hemoglobin 32 25-34 pg Mean Corpuscular Hemoglobin Concent 33 32-36 g/dL Red Cell Distribution Width 13.4 10.0-14.5 % Platelet Count 389 130-400 10^3/uL Mean Platelet Volume 9.1 9.0-12.2 fL Immature Granulocyte % (Auto) 0 % Neutrophils (%) (Auto) 67 42-75 % Lymphocytes (%) (Auto) 24 12-44 % Monocytes (%) (Auto) 7 0-12 % Eosinophils (%) (Auto) 2 0-10 % Basophils (%) (Auto) 1 0-10 % Neutrophils # (Auto) 7.2 1.8-7.8 10^3/uL Lymphocytes # (Auto) 2.6 1.0-4.0 10^3/uL Monocytes # (Auto) 0.7 0.0-1.0 10^3/uL Eosinophils # (Auto) 0.2 0.0-0.3 10^3/uL Basophils # (Auto) 0.1 0.0-0.1 10^3/uL Immature Granulocyte # (Auto) 0.0 0.0-0.1 10^3/uL Sodium Level 141 135-145 MMOL/L Potassium Level 4.3 3.6-5.0 MMOL/L Chloride Level 98 98-107 MMOL/L Carbon Dioxide Level 23 21-32 MMOL/L Anion Gap 20 H 5-14 MMOL/L Blood Urea Nitrogen 16 7-18 MG/DL Creatinine 0.98 0.60-1.30 MG/DL Estimat Glomerular Filtration Rate 72 BUN/Creatinine Ratio 16 Glucose Level 117 H 70-105 MG/DL Calcium Level 11.0 H 8.5-10.1 MG/DL Corrected Calcium 8.5-10.1 MG/DL Total Bilirubin 0.6 0.1-1.0 MG/DL Aspartate Amino Transf (AST/SGOT) 25 5-34 U/L Alanine Aminotransferase (ALT/SGPT) 36 0-55 U/L Alkaline Phosphatase 114 40-136 U/L Total Protein 8.9 H 6.4-8.2 GM/DL Albumin 4.6 H 3.2-4.5 GM/DL Lipase 242 H 8-78 U/L My Orders Orders - MORAIMA VALEDZ APRN Lipase (06/26/21 17:51) Cbc With Automated Diff (06/26/21 17:51) Comprehensive Metabolic Panel (06/26/21 17:51) Ua Culture If Indicated (06/26/21 17:51) Drug Screen Stat (Urine) (06/26/21 17:51) Ct Abdomen/Pelvis W (06/26/21 17:51) Lactated Ringers (Lr 1000 Ml Iv Solution (06/26/21 18:00) Fentanyl Inj (Sublimaze Injection) (06/26/21 18:00) Ondansetron Injection (Zofran Injectio (06/26/21 18:00) Iohexol Injection (Omnipaque 350 Mg/Ml 1 (06/26/21 18:30) Received Contrast (Hold Metformin- Contr (06/26/21 18:30) Ns (Ivpb) (Sodium Chloride 0.9% Ivpb Bag (06/26/21 18:30) Medications Given in ED Current Medications Medications Dose Ordered Sig/Jamilah Route Start Time Stop Time Status Last Admin Dose Admin Fentanyl Citrate 50 mcg ONCE ONCE IVP 06/26/21 18:00 06/26/21 18:01 DC 06/26/21 18:03 50 MCG Iohexol 100 ml ONCE ONCE IV 06/26/21 18:30 06/26/21 18:31 DC 06/26/21 18:43 66 ML Ondansetron HCl 8 mg ONCE ONCE IVP 06/26/21 18:00 06/26/21 18:01 DC 06/26/21 18:03 8 MG Sodium Chloride 100 ml ONCE ONCE IV 06/26/21 18:30 06/26/21 18:31 DC 06/26/21 18:43 80 ML Vital Signs/I&O 06/26/21 17:38 Temp 35.3 Pulse 110 Resp 20 B/P (MAP) 125/82 (96) Pulse Ox 100 O2 Delivery Room Air Blood Pressure Mean: 96 Diagnostic Imaging Diagonstic Imaging: CT Comments NAME: BENSON MARROQUIN [facility] REC#: [id number] PT STATUS: REG ER : 1965 PHYSICIAN: MORAIMA VALDEZ APRN ADMIT DATE: 06/26/21/ER Signed Date of Exam:06/26/21 CT ABDOMEN/PELVIS W EXAMINATION: CT abdomen and pelvis with intravenous contrast. TECHNIQUE: Multiple contiguous axial images were obtained through the abdomen and pelvis after the uneventful administration of intravenous contrast. All CT scans use one or more of the following dose optimizing techniques: automated exposure control, MA and/or KvP adjustment based on patient size and exam type or iterative reconstruction. HISTORY: Abdominal pain. Epigastric pain. COMPARISON: None available. FINDINGS: The heart is unremarkable. The included lung bases are clear. There is wall thickening throughout the stomach with associated hyperemia. The stomach is mildly distended with ingested contents. The liver, spleen, pancreas, adrenal glands and kidneys have a normal appearance. There is no pathologically enlarged mesenteric or retroperitoneal adenopathy. The bowel loops are nondilated. The appendix is visualized in the right lower quadrant. There is no free fluid or free air. No acute osseous abnormality. Ureters and bladder are grossly normal. Likely fibroid uterus is noted. There is no free air, loculated collection or adenopathy in the pelvis. IMPRESSION: 1. Wall thickening throughout the stomach with associated hyperemia, suggestive of gastritis. 2. Fibroid uterus. Recommend nonemergent pelvic ultrasound to further evaluate. Dictated by: Dictated on workstation # [id number] Dict: 06/26/211849 Trans: 06/26/211856 [facility] [id number] Interpreted by: JULIO CÉSAR BOB DO Electronically signed by: JULIO CÉSAR BOB DO 06/26/211856 ADDENDUM REPORT ADDENDUM: Please add to the findings and impression: FINDINGS: There is focal outpouching of the wall of the stomach along the lesser curvature. This area measures 0.8 cm in transverse dimension. IMPRESSION: 1. Wall thickening throughout the stomach with associated hyperemia, suggestive of gastritis. There is focal outpouching of the wall of the stomach along the lesser curvature, likely representing gastric ulcer. No bhavana perforation is seen at this time although follow-up with CT of the abdomen may be considered in 5-7 days. 2. Fibroid uterus. Recommend nonemergent pelvic ultrasound to further evaluate. Findings were discussed with Moraima Valdez APRN, at 7:02 PM on 06/26/2021. Dictated by: Dictated on workstation # [id number] Interpreted by: JULIO CÉSAR BOB DO Electronically signed by: JULIO CÉSAR BOB DO 06/26/211901 Departure Communication (Admissions) 1910-CT was interpreted as gastric thickening. I did call Dr. Bob from radiology to discuss with him the apparent loss of integrity of the medial wall of the stomach on the axial films image 26 and 27 sequence 2. He agrees this could be either ulceration or early contained perforation and will amend the CT report. Given the gastric distention I discussed with the patient the need for nasogastric tube placement for stomach decompression but she adamantly declines. I discussed with Dr. Robbins and Dr. Perez. Will admit, n.p.o., PPI plus Carafate nausea and pain control. Patient agrees to stay overnight. Impression Primary Impression: Pancreatitis Additional Impression: Gastric ulceration Disposition: ADMITTED INPATIENT Condition: Stable Admissions Decision to Admit Reason: Admit from ER (General) Decision to Admit/Date: Jun 26, 2021 Time/Decision to Admit Time: 19:12 Departure-Patient Inst. Referrals: NO,LOCAL PHYSICIAN (PCP/Family) Primary Care Physician MORAIMA VALDEZ APRN Jun 26, 2021 17:55
[2021-06-26] MEDS ORDERED: ONDANSETRON 4 MG/2 ML (SDV) Z0FRAN IVP ONE (18:00)
[2021-06-26] MEDS ORDERED: LACTATED RINGERS 1,000 ML IV SCH (18:00)
[2021-06-26] MEDS ORDERED: fentaNYL INJ 100 MCG/2 ML AMP IVP ONE (18:00)
[2021-06-26 18:01] LABS: BASOPHILS # (AUTO) 0.1 10^3/uL (0.0-0.1); BASOPHILS % (AUTO) 1 % (0-10); EOSINOPHILS # (AUTO) 0.2 10^3/uL (0.0-0.3); EOSINOPHILS % (AUTO) 2 % (0-10); HEMATOCRIT 55 % (35-52); HEMOGLOBIN 17.9 g/dL (11.5-16.0); LYMPHOCYTES # (AUTO) 2.6 10^3/uL (1.0-4.0); LYMPHOCYTES % (AUTO) 24 % (12-44); MEAN CORPUSCULAR HEMOGLOBIN 32 pg (25-34); MEAN CORPUSCULAR HGB CONC 33 g/dL (32-36); MEAN CORPUSCULAR VOLUME 97 fL (80-99); MEAN PLATELET VOLUME 9.1 fL (9.0-12.2); MONOCYTES # (AUTO) 0.7 10^3/uL (0.0-1.0); MONOCYTES % (AUTO) 7 % (0-12); NEUTROPHILS # (AUTO) 7.2 10^3/uL (1.8-7.8); NEUTROPHILS % (AUTO) 67 % (42-75); PLATELET COUNT 389 10^3/uL (130-400); WHITE BLOOD COUNT 10.8 10^3/uL (4.3-11.0)
[2021-06-26 18:09] LABS: ALBUMIN 4.6 GM/DL (3.2-4.5); CHLORIDE 98 MMOL/L (98-107); POTASSIUM 4.3 MMOL/L (3.6-5.0); SODIUM 141 MMOL/L (135-145)
[2021-06-26 18:12] LABS: GLUCOSE 117 MG/DL (70-105); TOTAL PROTEIN 8.9 GM/DL (6.4-8.2)
[2021-06-26 18:13] LABS: BILIRUBIN,TOTAL 0.6 MG/DL (0.1-1.0); CARBON DIOXIDE 23 MMOL/L (21-32)
[2021-06-26 18:15] LABS: ALKALINE PHOSPHATASE 114 U/L (40-136); CREATININE SERUM 0.98 MG/DL (0.60-1.30); GFR ESTIMATED 72
[2021-06-26 18:16] LABS: BUN/CREATININE RATIO 16
[2021-06-26 18:18] LABS: ALANINE AMINOTRANSFERASE 36 U/L (0-55)
[2021-06-26 18:19] LABS: LIPASE 242 U/L (8-78)
[2021-06-26] MEDS ORDERED: NS 100 ML (IVPB) BAG IV ONE (18:30)
[2021-06-26] MEDS ORDERED: IOHEXOL 350 MG/ML 100 ML (OMNIPAQUE 350) VIAL IV ONE (18:30)
[2021-06-26] MEDS ORDERED: HOLD METFORMIN - RECEIVED CONTRAST 20 ML VIAL IV SCH (18:30)
--- NOTE | 2021-06-26 18:55 | Diagnostic Imaging Report ---
EXAMINATION: CT abdomen and pelvis with intravenous contrast. TECHNIQUE: Multiple contiguous axial images were obtained through the abdomen and pelvis after the uneventful administration of intravenous contrast. All CT scans use one or more of the following dose optimizing techniques: automated exposure control, MA and/or KvP adjustment based on patient size and exam type or iterative reconstruction. HISTORY: Abdominal pain. Epigastric pain. COMPARISON: None available. FINDINGS: The heart is unremarkable. The included lung bases are clear. There is wall thickening throughout the stomach with associated hyperemia. The stomach is mildly distended with ingested contents. The liver, spleen, pancreas, adrenal glands and kidneys have a normal appearance. There is no pathologically enlarged mesenteric or retroperitoneal adenopathy. The bowel loops are nondilated. The appendix is visualized in the right lower quadrant. There is no free fluid or free air. No acute osseous abnormality. Ureters and bladder are grossly normal. Likely fibroid uterus is noted. There is no free air, loculated collection or adenopathy in the pelvis. IMPRESSION: 1. Wall thickening throughout the stomach with associated hyperemia, suggestive of gastritis. 2. Fibroid uterus. Recommend nonemergent pelvic ultrasound to further evaluate. Dictated by: Dictated on workstation # [id number]
[2021-06-26 19:24] LABS: BILIRUBIN,URINE NEGATIVE (NEGATIVE); CLARITY,URINE CLEAR; COLOR,URINE YELLOW; GLUCOSE, URINE (UA) NEGATIVE (NEGATIVE); KETONES,URINE NEGATIVE (NEGATIVE); LEUKOCYTE ESTERASE ,URINE 1+ (NEGATIVE); NITRITE,URINE POSITIVE (NEGATIVE); PH,URINE 5.5 (5-9); PROTEIN,URINE NEGATIVE (NEGATIVE)
[2021-06-26 19:55] LABS: BACTERIA,URINE LARGE /HPF; CALCIUM OXALATE CRYSTALS,UR MODERATE /LPF; SQUAMOUS EPITHELIAL CELL,UR 0-2 /HPF
[2021-06-26 19:58] LABS: AMPHETAMINE SCREEN, URINE POSITIVE (NEGATIVE); BARBITURATE SCREEN URINE NEGATIVE (NEGATIVE); BENZODIAZEPINES SCREEN URINE NEGATIVE (NEGATIVE); CANNABINOID SCREEN, URINE NEGATIVE (NEGATIVE); COCAINE SCREEN URINE NEGATIVE (NEGATIVE); METHADONE STAT NEGATIVE (NEGATIVE); METHAMPHETAMINE SCREEN URINE S POSITIVE (NEGATIVE); OPIATE SCREEN URINE NEGATIVE (NEGATIVE); OXYCODONE STAT NEGATIVE (NEGATIVE); PROPOXYPHENE STAT NEGATIVE (NEGATIVE); TRICYCLIC ANTIDEPRESSANTS SCRE NEGATIVE (NEGATIVE)
[2021-06-26] MEDS ORDERED: cefTRIAXone 1,000 MG in WATER (STERILE) FOR INJECTION 10 ML IV ONE (20:30)
[2021-06-26 20:33] VITALS: BP 119/78
--- NOTE | 2021-06-26 20:37 | CONSULTATION REPORT ---
DATE OF SERVICE: HISTORY OF PRESENT ILLNESS: The patient is a 55-year-old female who presented to the Emergency Department with a 3-day history of epigastric as well as a midline abdominal pain. This also has been associated with nausea; however, no vomiting. She reports that she has not had these symptoms before in the past. She does not report any diarrhea nor constipation as well as no red blood per rectum nor any dark tarry stools. Her social history does encompass smoking cigarettes as well as a methamphetamine use. A CT scan was performed, which did show gastric wall thickening, likely consistent with a significant gastritis. Otherwise, her labs are normal and hemoglobin is stable. PAST MEDICAL HISTORY: Asthma, illicit drug use. PAST SURGICAL HISTORY: Right pelvis and femur ORIF, foreign body removed from skull. ALLERGIES: No known drug allergies. MEDICATIONS: None. SOCIAL HISTORY: Positive for smoke. Positive for methamphetamine. FAMILY HISTORY: Noncontributory. VITAL SIGNS: Temperature 35.3, blood pressure 125/82, pulse 110, respirations 20, pulse ox 100% on room air. REVIEW OF SYSTEMS: This is a slightly thin-appearing female, currently in no acute distress. She is not experiencing any shortness of breath or difficulty breathing. No chest pain, palpitations, diaphoresis. Epigastric as well as midline abdominal pain with intermittent nausea, no vomiting, no red blood per rectum, no dark tarry stools. No fever, chills, no recent inadvertent weight loss. All other review of systems negative. PHYSICAL EXAMINATION: CHEST: Expiratory wheezes bilaterally. HEART: Regular, no murmurs. EXTREMITIES: No lower extremity edema, negative Homans sign. HEENT: No scleral icterus. NECK: No cervical lymphadenopathy. ABDOMEN: Soft, nondistended. There is pain in the epigastric region with voluntary guarding, no rebound. SKIN: Warm, dry. LABORATORY DATA: WBC 10.8, hemoglobin 17.9, hematocrit 55, platelets 389. BUN 16, creatinine 0.98. ASSESSMENT AND PLAN: A 55-year-old female with abdominal pain and gastritis. She will be admitted by internal medicine and treated with bowel rest, IV PPI acid firearms expert on a b.i.d. basis as well as Carafate. Due to the findings on CT scan at some point, she will also need an upper endoscopy to evaluate the possibility for ulcerations as well as to rule out malignancy. She will also need to refrain from smoking as well as a methamphetamine use. The vasoconstriction elicited via both of this substance does cause severe vasoconstriction and increase acid production in the stomach. Job ID: [id number] DocumentID: [id number] Dictated Date: 06/26/2021 20:05:26 Check Scaler Date: 06/26/2021 20:37:00 Dictated By: ROM OWENS MD
[2021-06-26] MEDS ORDERED: fentaNYL INJ 100 MCG/2 ML AMP IVP PRN (22:45)
[2021-06-26] MEDS ORDERED: ONDANSETRON 4 MG/2 ML (SDV) Z0FRAN IVP PRN (22:45)
[2021-06-26] MEDS: LACTATED RINGERS 1,000 ML IV SCH (23:41)
[2021-06-27 00:04] VITALS: BP 107/73
[2021-06-27 04:38] VITALS: BP 114/78
[2021-06-27] MEDS: SUCRALFATE 1 GM (CARAFATE) TAB PO SCH ×2 (06:02→11:33)
[2021-06-27 06:17] LABS: BASOPHILS # (AUTO) 0.1 10^3/uL (0.0-0.1); BASOPHILS % (AUTO) 1 % (0-10); EOSINOPHILS # (AUTO) 0.3 10^3/uL (0.0-0.3); EOSINOPHILS % (AUTO) 3 % (0-10); HEMATOCRIT 43 % (35-52); LYMPHOCYTES # (AUTO) 3.6 10^3/uL (1.0-4.0); LYMPHOCYTES % (AUTO) 32 % (12-44); MEAN CORPUSCULAR HEMOGLOBIN 31 pg (25-34); MEAN CORPUSCULAR HGB CONC 32 g/dL (32-36); MEAN CORPUSCULAR VOLUME 97 fL (80-99); MEAN PLATELET VOLUME 9.2 fL (9.0-12.2); MONOCYTES # (AUTO) 1.1 10^3/uL (0.0-1.0); MONOCYTES % (AUTO) 10 % (0-12); NEUTROPHILS % (AUTO) 54 % (42-75); PLATELET COUNT 332 10^3/uL (130-400); WHITE BLOOD COUNT 11.1 10^3/uL (4.3-11.0)
[2021-06-27 06:32] LABS: POTASSIUM 4.1 MMOL/L (3.6-5.0)
[2021-06-27 06:33] LABS: CALCIUM 9.2 MG/DL (8.5-10.1)
[2021-06-27 06:37] LABS: CREATININE SERUM 0.82 MG/DL (0.60-1.30)
[2021-06-27 08:38] VITALS: BP 127/83
[2021-06-27] MEDS: LACTATED RINGERS 1,000 ML IV SCH (08:39)
[2021-06-27] MEDS ORDERED: PANTOPRAZOLE 40 MG (PROTONIX) VIAL IV SCH (09:00)
--- NOTE | 2021-06-27 10:56 | Progress Note ---
Subjective Date Seen by a Provider: Jun 27, 2021 Time Seen by a Provider: 10:00 Subjective/Events-last exam Patient seen with Dr. Robbins. Patient reports epigastric pain and nausea, but no vomiting. Reported heartburn, no hematemesis or coffee-ground emesis. No fever/chills. She does report she is hungry. Objective Exam Vital Signs Date Time Temp Pulse Resp B/P (MAP) Pulse Ox O2 Delivery O2 Flow Rate FiO2 06/27/21 08:38 35.6 90 18 127/83 (98) 97 Room Air 06/27/21 08:00 97 Room Air 06/27/21 04:38 37.5 90 20 114/78 (90) 94 Room Air 06/27/21 00:04 37.0 92 18 107/73 (84) 96 Room Air 06/26/21 20:38 99 Room Air 06/26/21 20:33 36.3 97 18 119/78 (92) 99 Room Air 06/26/21 20:00 35.3 90 18 126/84 (96) 100 06/26/21 17:38 35.3 110 20 125/82 (96) 100 Room Air Capillary Refill : Less Than 3 Seconds General Appearance: No Apparent Distress, WD/WN Neck: Normal Inspection, Supple Respiratory: Normal Breath Sounds, No Accessory Muscle Use, No Respiratory Distress Cardiovascular: Regular Rate, Rhythm, No Edema Gastrointestinal: normal bowel sounds, soft, tenderness (epigastric region) Extremity: Normal Inspection, Normal Range of Motion Neurologic/Psychiatric: Alert, Oriented x3 Skin: Normal Color, Warm/Dry Results Lab Laboratory Tests 06/26/21 17:53: White Blood Count 10.8, Red Blood Count 5.66H, Hemoglobin 17.9H, Hematocrit 55H, Mean Corpuscular Volume 97, Mean Corpuscular Hemoglobin 32, Mean Corpuscular Hemoglobin Concent 33, Red Cell Distribution Width 13.4, Platelet Count 389, Mean Platelet Volume 9.1, Immature Granulocyte % (Auto) 0, Neutrophils (%) (Auto) 67, Lymphocytes (%) (Auto) 24, Monocytes (%) (Auto) 7, Eosinophils (%) (Auto) 2, Basophils (%) (Auto) 1, Neutrophils # (Auto) 7.2, Lymphocytes # (Auto) 2.6, Monocytes # (Auto) 0.7, Eosinophils # (Auto) 0.2, Basophils # (Auto) 0.1, Immature Granulocyte # (Auto) 0.0, Sodium Level 141, Potassium Level 4.3, Chloride Level 98, Carbon Dioxide Level 23, Anion Gap 20H, Blood Urea Nitrogen 16, Creatinine 0.98, Estimat Glomerular Filtration Rate 72, BUN/Creatinine Ratio 16, Glucose Level 117H, Calcium Level 11.0H, Corrected Calcium , Total Bilirubin 0.6, Aspartate Amino Transf (AST/SGOT) 25, Alanine Aminotransferase (ALT/SGPT) 36, Alkaline Phosphatase 114, Total Protein 8.9H, Albumin 4.6H, Lipase 242H 06/26/21 19:13: Urine Color YELLOW, Urine Clarity CLEAR, Urine pH 5.5, Urine Specific [place] 1.010L, Urine Protein NEGATIVE, Urine Glucose (UA) NEGATIVE, Urine Ketones NEGATIVE, Urine Nitrite POSITIVEH, Urine Bilirubin NEGATIVE, Urine Urobilinogen 0.2, Urine Leukocyte Esterase 1+H, Urine RBC (Auto) TRACE-I, Urine RBC NONE, Urine WBC 10-25H, Urine Squamous Epithelial Cells 0-2, Urine Crystals PRESENTH, Urine Calcium Oxalate Crystals MODERATEH, Urine Bacteria LARGEH, Urine Casts NONE, Urine Hyaline Casts 2-5H, Urine Mucus MODERATEH, Urine Culture Indicated YES, Urine Opiates Screen NEGATIVE, Urine Oxycodone Screen NEGATIVE, Urine Methadone Screen NEGATIVE, Urine Propoxyphene Screen NEGATIVE, Urine Barbiturates Screen NEGATIVE, Ur Tricyclic Antidepressants Screen NEGATIVE, Urine Phencyclidine Screen NEGATIVE, Urine Amphetamines Screen POSITIVEH, Urine Methamphetamines Screen POSITIVEH, Urine Benzodiazepines Screen NEGATIVE, Urine Cocaine Screen NEGATIVE, Urine Cannabinoids Screen NEGATIVE 06/27/21 06:04: White Blood Count 11.1H, Red Blood Count 4.46, Hemoglobin 14.0#, Hematocrit 43, Mean Corpuscular Volume 97, Mean Corpuscular Hemoglobin 31, Mean Corpuscular Hemoglobin Concent 32, Red Cell Distribution Width 13.5, Platelet Count 332, Mean Platelet Volume 9.2, Immature Granulocyte % (Auto) 0, Neutrophils (%) (Auto) 54, Lymphocytes (%) (Auto) 32, Monocytes (%) (Auto) 10, Eosinophils (%) (Auto) 3, Basophils (%) (Auto) 1, Neutrophils # (Auto) 6.0, Lymphocytes # (Auto) 3.6, Monocytes # (Auto) 1.1H, Eosinophils # (Auto) 0.3, Basophils # (Auto) 0.1, Immature Granulocyte # (Auto) 0.0, Sodium Level 140, Potassium Level 4.1, Chloride Level 102, Carbon Dioxide Level 25, Anion Gap 13, Blood Urea Nitrogen 17, Creatinine 0.82, Estimat Glomerular Filtration Rate 88, BUN/Creatinine Ratio 21, Glucose Level 90, Calcium Level 9.2, Lipase 20 Microbiology 06/26/21 Urine Culture - Preliminary, Resulted Escherichia coli Assessment/Plan Assessment/Plan Assess & Plan/Chief Complaint A 55-year-old female with abdominal pain and gastritis. VSS WBC 11.1 Continue with medical management Bowel rest IV fluids, pain and nausea meds IV PPI BID and carafate Will need EGD on this admission to rule out malignancy SAUD MAHARAJ SLEEVE BOTTOM FELLER Jun 27, 2021 10:56
[2021-06-27 11:30] VITALS: BP 119/81
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
--- NOTE | 2021-06-27 13:08 | Short Stay Summary-Hospitalist ---
History of Present Illness HPI/Chief Complaint Patient is a 55-year-old -Citizen Of [place] female with a past medical history of asthma and illicit drug use who presented to the emergency department due to abdominal pain. She reports her symptoms started about 4 days ago. They would wax and wane and she could not identify any aggravating factors. Imaging was done in the emergency department which revealed significant gastritis and could not rule out a gastric perforation. She was admitted for further management. This morning she states her pain is improved though still present. She mostly would just like something to eat or drink. Date Seen 06/27/21 Time Seen by a Provider: 11:30 Attending Physician Sherwin Robbins MD PCP No,Local Physician Referring Physician Date of Admission Jun 26, 2021 at 19:08 Home Medications & Allergies Home Medications Reviewed patient Home Medication Reconciliation performed by pharmacy medication reconciliations transfill technician and/or nursing. Patients Allergies have been reviewed. Allergies Allergies Coded Allergies No Known Drug Allergies (Unverified01/21/20) Past Racazoz-Pqgutf-Lrkknf Hx Patient Social History Tobacco Use?: Yes Tobacco type used: Cigarettes Smoking Status: Current Everyday Smoker Substance use?: No Substance type: Amphetamines, Marijuana Substance frequency: Daily Alcohol Use?: No Pt feels they are or have been: No Immunizations Up To Date First/Initial COVID19 Vaccinat: NO COVID VACCINE Tetanus Booster (TDap): Unknown Hepatitis A: Yes Hepatitis B: Yes PED Vaccines UTD: Yes Seasonal Allergies Seasonal Allergies: No Current Status status: No status: No Advance Directives: No Communicates: Verbally Primary Language: Georgian Preferred Spoken Language: Georgian Implanted or Applied Medical D: None Past Medical History Surgeries: Orthopedic Asthma Family Medical History Reviewed Nursing Family Hx No Pertinent Family Hx Review of Systems Constitutional: No chills, No fever EENTM: no symptoms reported Respiratory: No cough, No short of breath Gastrointestinal: see HPI, abdominal pain (epigastric), nausea; No vomiting Genitourinary: no symptoms reported Musculoskeletal: no symptoms reported Skin: no symptoms reported Psychiatric/Neurological: No Symptoms Reported Physical Exam Physical Exam Vital Signs Vital Signs - First Documented 06/26/21 17:38 Temp 35.3 Pulse 110 Resp 20 B/P (MAP) 125/82 (96) Pulse Ox 100 O2 Delivery Room Air Capillary Refill : Less Than 3 Seconds Height, Weight, BMI Height: '" Weight: lbs. oz. kg; 18.36 BMI Method: General Appearance: No Apparent Distress, WD/WN, Thin HEENT: PERRL/EOMI; No Scleral Icterus (L), No Scleral Icterus (R) Neck: Normal Inspection, Supple Respiratory: Lungs Clear, No Accessory Muscle Use, No Respiratory Distress Cardiovascular: Regular Rate, Rhythm, No Edema, No Murmur Gastrointestinal: Normal Bowel Sounds; No Distended, No Guarding; Tenderness (epigastric) Extremity: Normal Inspection, No Calf Tenderness, No Pedal Edema Neurologic/Psychiatric: Alert, Oriented x3, Normal Mood/Affect Skin: Normal Color, Warm/Dry Results Results/Procedures Labs Laboratory Tests 06/26/21 17:53 06/27/21 06:04 Patient resulted labs reviewed. [facility] [place], [place] NAME: BENSON [facility]ARROQUIN [facility] REC#: [id number] PT STATUS: REG ER : 1965 PHYSICIAN: MORAIMA VALDEZ APRN ADMIT DATE: 06/26/21/ER Signed Date of Exam:06/26/21 CT ABDOMEN/PELVIS W EXAMINATION: CT abdomen and pelvis with intravenous contrast. TECHNIQUE: Multiple contiguous axial images were obtained through the abdomen and pelvis after the uneventful administration of intravenous contrast. All CT scans use one or more of the following dose optimizing techniques: automated exposure control, MA and/or KvP adjustment based on patient size and exam type or iterative reconstruction. HISTORY: Abdominal pain. Epigastric pain. COMPARISON: None available. FINDINGS: The heart is unremarkable. The included lung bases are clear. There is wall thickening throughout the stomach with associated hyperemia. The stomach is mildly distended with ingested contents. The liver, spleen, pancreas, adrenal glands and kidneys have a normal appearance. There is no pathologically enlarged mesenteric or retroperitoneal adenopathy. The bowel loops are nondilated. The appendix is visualized in the right lower quadrant. There is no free fluid or free air. No acute osseous abnormality. Ureters and bladder are grossly normal. Likely fibroid uterus is noted. There is no free air, loculated collection or adenopathy in the pelvis. IMPRESSION: 1. Wall thickening throughout the stomach with associated hyperemia, suggestive of gastritis. 2. Fibroid uterus. Recommend nonemergent pelvic ultrasound to further evaluate. Dictated by: Dictated on workstation # [id number] Dict: 06/26/211849 Trans: 06/26/211856 [facility] [id number] Interpreted by: JULIO CÉSAR LOPEZ DO Electronically signed by: JULIO CÉSAR LOPEZ DO 06/26/211856 ADDENDUM REPORT ADDENDUM: Please add to the findings and impression: FINDINGS: There is focal outpouching of the wall of the stomach along the lesser curvature. This area measures 0.8 cm in transverse dimension. IMPRESSION: 1. Wall thickening throughout the stomach with associated hyperemia, suggestive of gastritis. There is focal outpouching of the wall of the stomach along the lesser curvature, likely representing gastric ulcer. No bhavana perforation is seen at this time although follow-up with CT of the abdomen may be considered in 5-7 days. 2. Fibroid uterus. Recommend nonemergent pelvic ultrasound to further evaluate. Findings were discussed with Moraima Valdez APRN, at 7:02 PM on 06/26/2021. Dictated by: Dictated on workstation # [id number] Interpreted by: JULIO CÉSAR LOPEZ DO Electronically signed by: JULIO CÉSAR LOPEZ DO 06/26/211901 Short Stay Diagnosis Discharge Diagnosis-Short Stay Admission Diagnosis gastritis with possible perforation Final Discharge Diagnosis gastritis with possible perforation Conclusion Plan gastritis with possible perforation Tobacco abuse Methamphetamine abuse Pain improved Dr Robbins consulted, appreciate recs he reviewed images and believes this to be severe gastritis and not perforation needs EGD protonix and carafate Shortly after my visit patient began screaming at RN and Dr Robbins per notes regarding urine drug screen being done and demanded to leave AMA Risks were discussed we her by nurse regarding leaving prior to medical optimization, AMA paperwork was signed prior to her departure Pt reports she well go to [facility] to follow up these issues CHENTE FELICIANO MD Jun 27, 2021 13:08
== END 2021-06-27 12:55 | disposition left against medical advice (07) | DRG 392 ==
LOC: EDUNIT# 17:26 → ER 17:28 → 4TH 19:08 → EDLOC 19:08
PROVIDERS: ADMIT Surgery; ATTEND Surgery
DX: K29.70 Gastritis, unspecified, without bleeding (principal); J45.909 Unspecified asthma, uncomplicated; F17.210 Nicotine dependence, cigarettes, uncomplicated; F15.10 Other stimulant abuse, uncomplicated
CPT/HCPCS: 36410; 36415; 74177; 76937; 80048; 80053; 80306; 81000; 83690; 85025; 87077; 87088; 87186